=== PATIENT | male | born 1960 | race Hispanic/Latino ===

== ENCOUNTER 2021-04-14 08:52 | Day surgery (SDC) | payer BC ==
--- NOTE | 2021-04-14 09:16 | Short Stay Summary ---
Short Stay Documentation Date of service: 04/14/21 - History Principal diagnosis: CMP H&P: obtained from office Past Medical History: heart failure, hypertension, hyperlipidemia Past Surgical History: no CABG, no PTCA Social history: smoking (former), no alcohol abuse - Physical exam General appearance: no acute distress Integumentary: no rash, other (R radial site clean/dry/intact, no evidence of bleeding or hematoma) HEENT: Atraumatic, EOMI Lungs: Clear to auscultation Heart: Normal S1, Normal S2 Gastrointestinal: normal Extremities: pulses intact, No edema Neurological: Normal speech, Normal tone, Sensation intact - Brief post op/procedure progress note Date of procedure: 04/14/21 Pre-op diagnosis: CMP Post-op diagnosis: same Surgeon: JENNIFER AUSTIN Estimated blood loss: none Pathology: none Condition: stable - Hospital course Hospital course: Pt presented for elective LHC. Pt tolerated procedure well. Currently stable with no cardiac complaints. See cath report for detailed findings. Plan for MUGA scan as an outpatient. Pt will also need to be fitted with LifeVest. Follow-up with Dr. Cooper on 05/09/2021 @ 11:15am ([phone]). - Disposition Condition at discharge: Good Disposition: 01 HOME / SELF CARE / HOMELESS - Discharge Diagnoses (1) Cardiomyopathy Status: Chronic Short Stay Discharge Plan Activity: advance as tolerated Diet: low fat, low cholesterol, low salt Wound: per your surgeon's advice Special Instructions: restrict fluid intake to (1500mL per day) Follow up with: INES COOPER MD [Staff Physician] - 7 Days JENNIFER AUSTIN MD [Staff Physician] - 7 Days Forms: CardCath PCI D/C Instructions
[2021-04-14 09:39] LABS: Basophils # (Auto) 0.1 K/mm3 (0.0-0.1); Basophils % (Auto) 1.3 % (0.0-1.8); Eosinophils # (Auto) 0.2 K/mm3 (0.0-0.4); Eosinophils % (Auto) 2.4 % (0.0-4.3); Hemoglobin 17.2 gm/dl (11.8-15.2); Lymphocytes # (Auto) 2.4 K/mm3 (1.2-5.4); Lymphocytes % (Auto) 24.3 % (13.4-35.0); Mean Corpuscular HGB Conc 33 % (32-34); Mean Corpuscular Volume 93 fl (84-94); Monocytes # (Auto) 0.9 K/mm3 (0.0-0.8); Monocytes % (Auto) 8.9 % (0.0-7.3); Platelet Count 208 K/mm3 (140-440); Red Blood Count 5.57 M/mm3 (3.65-5.03); Red Cell Distribution Width 15.9 % (13.2-15.2)
[2021-04-14] MEDS ORDERED: ASPIRIN EC 325 MG TAB PO ONE ×2 (09:49→10:50)
[2021-04-14 09:51] LABS: INR 0.96 (0.87-1.13)
[2021-04-14 09:52] LABS: BUN/Creatinine Ratio 14; Blood Urea Nitrogen 17 mg/dL (9-20); Calcium 10.6 mg/dL (8.4-10.2); Hemolysis Index 13; Partial Thromboplastin Time 34.1 Sec. (24.2-36.6)
[2021-04-14] MEDS: SODIUM CHLORIDE 0.9% 500 ML 500 ML IV SCH ×2 (09:55→15:02)
[2021-04-14] MEDS ORDERED: VERAPAMIL 5 MG/2 ML INJ ONE (10:19)
[2021-04-14] MEDS ORDERED: HEPARIN/NS 5000 UNIT/500ML 1,000 ML IR ONE (10:19)
[2021-04-14] MEDS ORDERED: fentaNYL 100 MCG/2 ML INJ ONE (10:19)
[2021-04-14] MEDS ORDERED: MIDAZOLAM 2 MG/2 ML INJ ONE (10:19)
[2021-04-14] MEDS ORDERED: HEPARIN 10,000 UNITS/10 ML VIAL ONE (10:19)
[2021-04-14] MEDS ORDERED: LIDOCAINE (2%) 20 MG/1 ML VIAL 20 ML MDV INFILTRATI ONE (10:19)
[2021-04-14] MEDS ORDERED: NITROGLYCERIN SYRINGE 3 ML ONE (10:20)
--- NOTE | 2021-04-14 10:40 | Electrocardiograph Report ---
[facility] Test Date: 2021-04-14 Test Time: 09:29:19 Pat Name: CHACORTA GODOY Department: Room: Gender: M Truer Pinion [employer] Wheel: ELIEZER : 1960 Requested By: JENNIFER AUSTIN Order Number: [id number] Reading MD: Aminata Campa Measurements Intervals [place] Rate: 60 P: 27 MN: 192 QRS: 7 QRSD: 101 T: 144 QT: 409 QTc: 410 Interpretive Statements Sinus rhythm Abnrm T, consider ischemia, anterolateral lds No previous ECG available for comparison Electronically Signed On 04-14-2021 10:39:56 EST by Aminata Campa
[2021-04-14] MEDS ORDERED: HYDROcodone/ACETAMINOPHEN 5-325 MG TAB PO PRN (12:11)
[2021-04-14] MEDS ORDERED: traMADol 50 MG TAB PO PRN (12:11)
--- NOTE | 2021-04-14 12:14 | Cardiac Catherization Report ---
DATE OF PROCEDURE: 04/14/2021 CARDIAC CATHETERIZATION REFERRING PHYSICIAN: Dr. Webber. INDICATIONS FOR PROCEDURE: The patient is a very pleasant 61-year-old gentleman who was found to have an abnormal stress test and echocardiogram, ejection fraction approximately 20%, having shortness of breath. Referred by Dr. Webber. Risks, benefits and alternatives explained at length prior to obtaining informed consent. 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 Corey's test in right hand was normal. 2 mL of 2% lidocaine used to anesthetize the right wrist. A standard 6-Kiswahili hydrophilic sheath used to cannulate the right radial artery via modified Seldinger technique. All exchanges performed to exchange a J-tip guidewire. JL3.5 catheter was used to engage the left main. No dampening or ventricularization. Cineangiography performed in all projections. The pigtail catheter was used to cross the aortic valve under fluoroscopic guidance. Left ventriculography in 30-degree RAMON and 30-degree JESSIKA projections via hand injections, catheter flushed. Manual pullback performed with continuous pressure monitoring. Catheter used to engage the right coronary. No dampening or ventricularization. Cineangiography performed in multiple projections. The catheter was removed from the body of wire, sheath removed. Manual pressure used to achieve hemostasis. I directly supervised the administration of moderate sedation with fentanyl and Versed from 10:55 a.m. to 11:25 a.m. No immediate complications identified. DATA: The patient remained in normal sinus rhythm throughout the procedure. Aortic pressure is 150/90. LV pressure is 150. LVEDP of 20 mmHg. Left ventriculography reveals severe global left ventricular hypokinesis, estimated ejection fraction of 30-35%. No evidence of aortic stenosis, mildly elevated LVEDP. Left main is without significant disease, bifurcates into left anterior descending, left circumflex. It should be noticed that his entire coronary tree has a very lumpy bumpy characteristics, OMARI 3 flow throughout. Maximal narrowing of approximately 50% in the circumflex system. Moderate diffuse small vessel disease distally, LAD without obstructive disease. Maximal narrowing of approximately 50%, small second diagonal with a 90% proximal stenosis. Right coronary is large ectatic in the proximal segment. OMARI 3 flow. Diffuse small vessel disease distally. Again, medical management. CONCLUSIONS: Moderate diffuse coronary artery disease with a lumpy bumpy diffuse nature of disease. Maximal narrowing of approximately 40-50% in the LAD and circumflex. Large mildly ectatic right coronary with OMARI 3 flow. Moderate diffuse small vessel disease distally. Mildly dilated left ventriculography with severe global left ventricular hypokinesis, estimated ejection fraction of 30-35%. No evidence of aortic stenosis. Recommend aggressive medical management. Continue statin, beta preston, ARB, needs to quit smoking and needs to quit drinking. I believe his cardiomyopathy is likely nonischemic and his coronary artery disease is ambient. Long discussion regarding alcohol cessation and so forth. We will check a MUGA scan in the office, followup with Dr. Webber in the office. No significant ectopy. Stable cardiac status. No high risk features; however, given the angiographic characteristics of his coronaries, I believe he should exercise and be very aggressive about primary and secondary prevention measures as he is at risk for future cardiac events. Standard radial care results of procedure explained to the patient and . All questions were addressed. TID: [id number] RECEIPT: [id number] ROSS/VICTOR MANUEL
[2021-04-14 14:25] VITALS: BP 114/74
== END 2021-04-14 15:10 | disposition home or self-care (01) ==
LOC: CATHLABREC 08:52
PROVIDERS: ATTEND Internal Medicine
DX: I51.89 Other ill-defined heart diseases (principal); I10 Essential (primary) hypertension; E78.00 Pure hypercholesterolemia, unspecified; M19.90 Unspecified osteoarthritis, unspecified site; Z87.891 Personal history of nicotine dependence; Z79.899 Other long term (current) drug therapy; Z98.890 Other specified postprocedural states
CPT/HCPCS: 36415; 80048; 85025; 85610; 85730; 93005; 93458; 99156; 99157; C1894; J1644; J1815; J2250; J3010; J3490; J7040; Q9967